=== PATIENT | female | born 1940 ===

== ENCOUNTER 2018-05-22 22:16 | Observation (INO) | payer OTHER, SELFPAY ==
[2018-05-23] VITALS (10 sets, daily range): BP systolic 140–195; BP diastolic 57–75; PULSE 66–88; RESP 15–20; TEMP 36.8–37.4; O2SAT 94–98; BMI 27.8
[2018-05-23] MEDS: SODIUM CHLORIDE 0.9% 1,000 ML 125 ML IV ×2 (01:31→08:50)
--- NOTE | 2018-05-23 04:27 | PC.NURSE ---
Admission Note: Pt direct admit from [facility] per stretcher. Pt AAOx3, able to ambulate from stretcher to bed. Needs walker to ambulate to bathroom, uses cane at home due to vertigo. Has Hx of recent falls at home. Admitted for OBS polynephritis. VSS, complains of right lower abdomen pain took tylenol 3 hrs ago at [facility] doesn't want any more now. Current PIV infiltrated, new PIV started and IV fluids started per orders. Pt stable on admit.
[2018-05-23 05:51] LABS: Add Manual Diff / Slide Review NO; Basophils Percent Auto 0.5 % (0-2); Eosinophils Percent Auto 5.1 % (2-4); Hemoglobin 9.7 g/dL (12.0-16.0); Lymphocytes Percent Auto 13.3 % (25-40); Mean Corpuscular HGB Conc 32.2 % (30-36); Mean Corpuscular Hemoglobin 27.1 PG (26-34); Mean Corpuscular Volume 84.2 fL (80-100); Monocytes Percent Auto 9.5 % (3-14); Neutrophils Absolute Auto 8100 /uL (3000-5900); Neutrophils Percent Auto 71.6 % (50-75); Platelet Count 217 X10^3/uL (150-400); Red Blood Cell Count 3.57 X10^6/uL (4.0-5.2); Red Cell Distribution Width 15.5 % (11.6-14.8); White Blood Cell Count 11.3 X10^3/uL (4.5-11.0)
[2018-05-23 05:52] LABS: BUN Creatinine Ratio 28.1 (6-22); Blood Urea Nitrogen 45 mg/dL (7-17); Calcium 9.1 mg/dL (8.4-10.2); Carbon Dioxide 24 mmol/L (22-32); Chloride 107 mmol/L (98-107); Estimated Glomerular Filt Rate 31.3 mL/min (>60); Glucose 151 mg/dL (80-110); HEMOLYSIS < 15 (0-50); Potassium 4.4 mmol/L (3.4-5.1); Sodium 139 mmol/L (137-145)
[2018-05-23] MEDS: ACETAMINOPHEN 325 MG TABLET 650 MG PO ×2 (05:59→21:35)
[2018-05-23] MEDS: ONDANSETRON 4 MG/2 ML INJ IV (09:23)
--- NOTE | 2018-05-23 09:47 | PC.NURSE ---
Addendum entered by Janiya Martinez R.N. 05/23/18 14:13: med - per sharon in pharmacy, need dose qvar, pt does not know but will have her granddtr look at it and/or bring it over later this afternoon. Original Note: Addendum entered by Janiya Martinez R.N. 05/23/18 13:59: gi/pain - millicent lunch, zofran in am provided effective relief nausea and denies now, discussed pain medications, declines any tylenol at this time, continues visiting with family while seated chair. Original Note: AM NOTE - seated chair, reports some r torso, abd discomfort, mild nausea this am, earlier tylenol provided some relief, declines iv dilaudid, did admin 4mg iv zofran for underlying nausea, bt present, ra 97%, hr 78, cbg check this am 138.
--- NOTE | 2018-05-23 10:51 | CM.DANOTE ---
DCP: Case received, EMR reviewed ad met with patient. Returned back to room and met family as well. DCP template completed with info currently available. Pt is a 78 year old female who admitted yesterday evening to the care of hospitalist team. Came via stretcher from [facility]. PCP: Dr. Chaudhary. Payer: confirmed: [facility] Pt carries diagnosis of Pyelonephritis. Currently lives at home, uses a cane, but has history of vertigo as well. Lives at home with , but have family that is supportive. P: Continue to follow patient as she gets ready for discharge, and offer any support to family that they may need. Danielle Shannon RN/[employer]
--- NOTE | 2018-05-23 11:01 | P.HP_ITS ---
History of Present Illness Date Patient Seen: 05/23/18 Time Patient Seen: 10:00 Chief complaint: PYELONEPHRITIS Narrative: 78-year-old female who presented to the [facility] Emergency room last night for right-sided abdominal pain. She started having right-sided abdominal pain about 4 days ago. The pain is constant. She rates the severity of the pain as 8/10. She also felt feverish. She did not take her temperature at home. She has mild urinary frequency. She has not noticed any burning with urination or urinary urgency. Her white blood cell count was elevated at the outside ER. Abdominal CT scan showed inflammatory changes around the cecum. Her urine analysis showed 10-50 WBCs. She was diagnosed with possible pyelonephritis. She received 2 g of IV ceftriaxone was transferred to [facility]. Patient has been afebrile since hospital admission. She continued to have right-sided abdominal pain. She denies nausea or vomiting. Patient History Medical History Anxiety disorder (Acute) Asthma, mild persistent (Acute) BPV (benign positional vertigo) (Acute ~2011) Bacteriuria (Acute) CHF (congestive heart failure) (Acute) COPD not affecting current episode of care (Acute) Cataract (Acute) Chronic cystitis (Acute) Chronic kidney disease (CKD) (Acute) GERD (gastroesophageal reflux disease) (Acute) Gangrenous cholecystitis (Acute ~09/2016) Gastroparesis (Acute) History of hysterectomy (Acute) Hyperlipidemia (Acute) Hypertension (Acute) Influenza (Acute ~11/2017) Insulin dependent diabetes mellitus with complications (Acute) Lower GI bleed (Acute) Nephropathy (Acute) Neuropathy (Acute) Osteoarthritis (Acute) PUD (peptic ulcer disease) (Acute) RSV (respiratory syncytial virus pneumonia) (Acute ~2015) Recurrent UTI (urinary tract infection) (Acute) Retinopathy (Acute) Stasis dermatitis of both legs (Acute) Stomach ulcer (Acute) TIA (transient ischemic attack) (Acute) Surgical History History of appendectomy (Acute) History of cholecystectomy (Acute ~10/2016) History of esophagogastroduodenoscopy (EGD) (Acute ~2004) History of total vaginal hysterectomy (TVH) (Acute ~1995) Comment: Past medical history: Type 2 diabetes, on Lantus insulin and NovoLog insulin Hypertension Hyperlipidemia Asthma Family & Social History Social History: household members spouse Prior Living Arrangements House Safety & Behavioral: Feels Safe in Current Yes Environment Been Physically Hurt or No Threatened By a Person Suicidal Ideation Description None Tobacco & Substance use: Smoking Status Never smoker alcohol intake never Substance Use Type does not use Comment: Social history: She is and lives with her . She denies alcohol drinking or cigarette smoking. Family history: Noncontributory Meds Home Medications Medication Instructions Recorded Confirmed Type Cholestyramine Light 4 g PO BID 05/23/18 05/23/18 History Kenalog 0.1 % TOPICAL 1-2XD 05/23/18 05/23/18 History Lipitor 10 mg PO DAILY 05/23/18 05/23/18 History Norvasc 5 mg PO DAILY 05/23/18 05/23/18 History Plavix 75 mg PO DAILY 05/23/18 05/23/18 History Proventil HFA 90 mcg INHALATION PRN PRN 05/23/18 05/23/18 History Qvar RediHaler 1 puff INHALATION BID PRN 05/23/18 05/23/18 History Singulair 10 mg PO QPM 05/23/18 05/23/18 History Tylenol 325 mg PO PRN PRN 05/23/18 05/23/18 History Vitamin D3 1,000 thousand unit PO DAILY 05/23/18 05/23/18 History Zantac 150 mg PO BID 05/23/18 05/23/18 History Zofran ODT 4 mg PO PRN PRN 05/23/18 05/23/18 History colchicine 0.6 mg PO DAILY 05/23/18 05/23/18 History ferrous sulfate 324 mg PO DAILY 05/23/18 05/23/18 History furosemide See Label Instructions .ROUTE 05/23/18 05/23/18 History .COMPLEX gabapentin 100 mg PO 05/23/18 History hydrocodone-acetaminophen 1 tab PO Q6HR PRN 05/23/18 05/23/18 History insulin aspart U-100 See Label Instructions .ROUTE 05/23/18 05/23/18 History .COMPLEX insulin glargine See Label Instructions .ROUTE 05/23/18 05/23/18 History .COMPLEX meclizine 25 mg PO TID 05/23/18 05/23/18 History sodium polystyrene sulfonate 15 g PO 3XW 05/23/18 05/23/18 History Allergies Allergy/AdvReac Type Severity Reaction Status Date / Time pioglitazone AdvReac Mild Gastrointestinal Verified 05/23/18 03:19 Upset rosiglitazone AdvReac Mild Gastrointestinal Verified 05/23/18 03:19 Upset Review of Systems Constitutional Constitutional: Reports fever(s) Cardiovascular Cardiovascular: Reports shortness of breath with activity Comments: Denies chest pain Respiratory Respiratory: Reports dyspnea on exertion Gastrointestinal Gastrointestinal: Reports as per HPI Genitourinary Genitourinary: Reports as per HPI Exam Vital Signs (past 8 hours): - 05/23/18 04:21 05/23/18 04:41 05/23/18 08:33 Temperature 98.9 F 98.7 F Pulse Rate 78 75 Respiratory Rate 16 17 Blood Pressure 140/57 H 155/59 H Pulse Oximetry 98 98 Oxygen Delivery Method Room Air Narrative Exam Narrative: GENERAL: Well-appearing, well-nourished and in no acute distress. HEENT: Head normocephalic, atraumatic. Eyes pupils equal round NECK: Supple, no JVD, CHEST: Breath sounds equal bilaterally, no wheezes rales or rhonchi. CARDIAC: Regular rate and rhythm without murmurs, rubs or gallops. ABDOMEN: Soft, mild right-sided tenderness. No guarding or rebound. EXTREMITIES: Normal range of motion, no clubbing or edema. NEUROLOGICAL: Alert and oriented; Normal muscle strength. SKIN: Warm, dry, no petechiae, no rashes or lesions. Objective Imaging CT scan - abdomen: Radiologist's impression: Abdominal and pelvic CT with contrast on May at [facility]: Pancreas was normal. Liver and spleen were normal. Kidneys are normal in size without hydronephrosis or nephrolithiasis. No free air or free fluid. There is residual inflammatory fat stranding surrounding the cecum which is much improved compared to January 23, 2018. There are extensive atheromatous plaque in the region of the origin of celiac and superior mesenteric arteries. There was gas within the lumen of the bladder Labs Result Diagrams: 05/23/18 05:20 05/23/18 05:20 Labs: Laboratory Results - last 24 hr 05/23/18 05/23/18 05:20 05:20 WBC 11.3 H RBC 3.57 L Hgb 9.7 L Hct 30.0 L MCV 84.2 MCH 27.1 MCHC 32.2 RDW 15.5 H Plt Count 217 Neut % (Auto) 71.6 Lymph % (Auto) 13.3 L [place] % (Auto) 9.5 Eos % (Auto) 5.1 H Baso % (Auto) 0.5 Neut # (Auto) 8100 H Sodium 139 Potassium 4.4 Chloride 107 Carbon Dioxide 24 BUN 45 H Creatinine 1.60 H Estimated GFR 31.3 L BUN/Creatinine Ratio 28.1 H Glucose 151 H Calcium 9.1 Assessment & Plan Plan: Assessment/Plan Narrative: 1. Urinary tract infection with possible pyelonephritis: She received 2 g of IV ceftriaxone at the outside ER yesterday. Preliminary urine culture from [facility] grew greater than 100,000 colonies of E coli. Id and sensitivity are still pending. We will start IV Levaquin 500 mg Q 24 hr. 2. Inflammatory changes near the cecum: The location of the inflammatory changes does correlate with her right-sided abdominal pain. However based on the radiology reading, her and inflammatory changes might have occurred for several months. The etiology is not quite clear. There seem to have improvement by comparing the 2 CT scans. We will empirically start her on Levaquin and Flagyl for treating possible enteritis. 3. Type 2 diabetes: Continue Lantus insulin and NovoLog insulin per outpatient dosing. 4. Hypertension: Continue amlodipine and lisinopril per outpatient dosing. 5. Disposition: Discharge home when she is medically more stable.
[2018-05-23] MEDS: levoFLOXacin 500 MG/100 ML PIGGYBACK 100 MG IV (11:31)
[2018-05-23] MEDS: INSULIN GLARGINE 100 UNIT/ML 3ML PEN 20 UNIT SUBCUT ×2 (11:31→21:32)
[2018-05-23] MEDS: metroNIDAZOLE 500 MG/100 ML PIGGYBACK 100 MG IV ×2 (12:38→21:31)
[2018-05-23] MEDS: INSULIN ASPART 100 UNIT/ML INSULN PEN 10 UNIT SUBCUT ×2 (12:41→21:33)
[2018-05-23] MEDS: MONTELUKAST 10 MG TABLET PO (18:21)
[2018-05-23] MEDS: CHOLESTYRAMINE/ASPARTAME 4 GM PACK PO (21:31)
[2018-05-24 04:03] VITALS: BP 171/66; PULSE 76; RESP 15; TEMP 36.7; O2SAT 95
[2018-05-24] MEDS: metroNIDAZOLE 500 MG/100 ML PIGGYBACK 100 MG IV ×2 (05:02→11:39)
[2018-05-24] MEDS: SODIUM CHLORIDE 0.9% 1,000 ML 125 ML IV (05:04)
--- NOTE | 2018-05-24 05:47 | PC.NURSE ---
pt's cbg at 0300= 57 snack of 1/2 egg sandwich, 120ml milk, chocolate s.f. pudding given w/100% eaten. cbg recheck at 0350 = 113. symptoms of sweating to back of neck, shakiness, weakness resolved after snack. pt reported not eating much at dinner.
[2018-05-24 07:00] VITALS: O2SAT 98
[2018-05-24 08:00] VITALS: BP 183/77; BP 192/72; PULSE 81; RESP 16; TEMP 36.9; O2SAT 98
[2018-05-24] MEDS: INSULIN GLARGINE 100 UNIT/ML 3ML PEN 20 UNIT SUBCUT (09:54)
[2018-05-24] MEDS: CHOLECALCIFEROL (VITAMIN D3) 1,000 UNIT TABLET 1000 UNIT PO (09:55)
[2018-05-24] MEDS: ATORVASTATIN 10 MG TABLET PO (09:55)
[2018-05-24] MEDS: CLOPIDOGREL 75 MG TABLET PO (09:55)
[2018-05-24] MEDS: AMLODIPINE 5 MG TABLET PO (09:55)
[2018-05-24] MEDS: INSULIN ASPART 100 UNIT/ML INSULN PEN 10 UNIT SUBCUT (09:55)
[2018-05-24] MEDS: FERROUS SULFATE 325 MG TABLET PO (09:55)
--- NOTE | 2018-05-24 10:45 | RT ---
Spoke with Pt. about the importance of using her Qvar on a daily basis vs. PRN. The pt. understands but would continue to use it only when she feels short of breath. I did educate the pt. but it seems as though it may be a cost issue. Will continue to work with the pt.
[2018-05-24] MEDS: CHOLESTYRAMINE/ASPARTAME 4 GM PACK PO (11:38)
--- NOTE | 2018-05-24 11:46 | P.DS_ITS ---
History of Present Illness Date Patient Seen: 05/24/18 Time Patient Seen: 11:30 Chief complaint: PYELONEPHRITIS Narrative: 78-year-old female who presented to the [facility] Emergency room last night for right-sided abdominal pain. She started having right-sided abdominal pain about 4 days ago. The pain is constant. She rates the severity of the pain as 8/10. She also felt feverish. She did not take her temperature at home. She has mild urinary frequency. She has not noticed any burning with urination or urinary urgency. Her white blood cell count was elevated at the outside ER. Abdominal CT scan showed inflammatory changes around the cecum. Her urine analysis showed 10-50 WBCs. She was diagnosed with possible pyelonephritis. She received 2 g of IV ceftriaxone was transferred to [facility]. Patient has been afebrile since hospital admission. She continued to have right-sided abdominal pain. She denies nausea or vomiting. Discharge Providers Date of admission: 05/22/18 22:16 Primary care physician: Jami Chaudhary MD Discharge provider: Levi Nelson MD Summary Discharge Diagnosis: 1. Acute pyelonephritis due to E coli 2. Inflammatory changes near the cecum, with outpatient workup planned including colonoscopy 3. Diabetes mellitus, type 2 4. Hypertension Hospital Course: The patient was admitted and treated with IV ceftriaxone, levofloxacin and metronidazole. Her culture returned showing sensitivity to cefuroxime and she was switched to this at discharge, to continue for a 10 day course with outpatient follow-up. She has no gastrointestinal symptoms to suggest cecal or other gastrointestinal involvement, and has been noted to have chronic changes in this area on prior CT, with follow-up planned through Gastroenterology. Therefore, no further therapy is indicated at this point, and she will be treated for pyelonephritis only. No other issues arose. She is prescribed hydrocodone #20 tablets for pain control until follow-up with her primary care provider. Status at Discharge Functional status at discharge: independent ambulation Overall status at discharge: patient is progressing back to baseline Time Spent with Patient Greater than 30 minutes Exam Vital Signs (past 8 hours): - 05/24/18 04:03 05/24/18 07:00 05/24/18 08:00 Temperature 98.1 F 98.4 F Pulse Rate 76 81 Respiratory Rate 15 16 Blood Pressure 171/66 H 183/77 H Pulse Oximetry 95 98 98 Oxygen Delivery Method Room Air Oxygen Flow Rate 0 Objective Labs Result Diagrams: 05/23/18 05:20 05/23/18 05:20 Discharge Plan Discharge Plan Patient Disposition: Home, Self-Care Discharge Med Rec/Prescriptions Prescriptions: New cefuroxime axetil 500 mg tablet 500 mg PO Q12H 10 Days Qty: 20 RF: 0 Continue acetaminophen [Tylenol] 325 mg Tablet 325 mg PO PRN PRN (Reason: Pain, Mild) RF: 0 albuterol sulfate [Proventil HFA] 90 mcg/actuation Hfa Aerosol Inhaler 90 mcg Inhalation PRN PRN (Reason: Shortness Of Breath) RF: 0 amlodipine [Norvasc] 5 mg Tablet 5 mg PO DAILY RF: 0 atorvastatin [Lipitor] 10 mg Tablet 10 mg PO DAILY RF: 0 Qvar RediHaler inhaler 1 puff Inhalation BID PRN (Reason: Shortness Of Breath) RF: 0 clopidogrel [Plavix] 75 mg Tablet 75 mg PO DAILY RF: 0 cholecalciferol (vitamin D3) [Vitamin D3] 1,000 unit Capsule 1,000 unit PO DAILY RF: 0 cholestyramine-aspartame [Cholestyramine Light] 4 gram Powder 4 g PO BID RF: 0 colchicine 0.6 mg Tablet 0.6 mg PO DAILY RF: 0 ferrous sulfate 324 mg (65 mg iron) Tablet,Delayed Release (Dr/Ec) 324 mg PO DAILY RF: 0 furosemide 40 mg Tablet See Label Instructions .ROUTE .COMPLEX RF: 0 gabapentin 100 mg Capsule 1 dose PO DIRECTED RF: 0 insulin aspart U-100 100 unit/mL Insulin Pen See Label Instructions .ROUTE .COMPLEX RF: 0 insulin glargine 100 unit/mL (3 mL) Insulin Pen See Label Instructions .ROUTE .COMPLEX RF: 0 meclizine 25 mg Tablet 25 mg PO TID RF: 0 montelukast [Singulair] 10 mg Tablet 10 mg PO QPM RF: 0 Zofran ODT 4 mg PO PRN PRN (Reason: Nausea) RF: 0 Zantac 150 mg PO BID RF: 0 sodium polystyrene sulfonate 15 gram Powder In Packet 15 g PO 3XW RF: 0 triamcinolone acetonide 0.1 % Cream 1 applic TOPICAL BID RF: 0 hydrocodone-acetaminophen 5-325 mg Tablet 1 tab PO Q6HR PRN (Reason: Pain, Moderate) Qty: 20 RF: 0 Follow up/Referrals: Jami Chaudhary MD [Primary Care Provider] - 1 Week Provider Discharge Instructions Diet: Regular Wound Care Report to your healthcare provider any signs of infection, such as:: chills, fever, night sweats, increased pain and unusual drainage Discharge Data Primary Care Provider: Jami Chaudhary Attending Provider: Levi Nelson V Admit Date/Time: 05/22/18 22:16
[2018-05-24 12:00] VITALS: BP 162/66; PULSE 93; RESP 16; TEMP 36.9; O2SAT 96
--- NOTE | 2018-05-24 13:36 | PC.NURSE ---
discharge d/c instructions provided to pt and . notified to make f/u apt with PCP in 1 week. also aware to call if any questions or concerns. Pt states she took all belongings with her. left in w/c with RN escort. PIV removed prior to d/c.
--- NOTE | 2018-05-24 13:40 | CM.DPC ---
DCP: continued: case received, EMR reviewed and d/c home noted. Pt has already left building with her . Will have outpt followup as per Dr. Nelson's d/c summary instructions.
== END 2018-05-24 13:15 | disposition home or self-care (01) | DRG 690 ==
PROVIDERS: Admitting Provider Internal Medicine; Family Provider Family Medicine; PCP Family Medicine; Visit Provider Internal Medicine
DX: N10 Acute pyelonephritis (principal); B96.20 Unspecified Escherichia coli [E. coli] as the cause of diseases classified elsewhere; K52.9 Noninfective gastroenteritis and colitis, unspecified; E11.40 Type 2 diabetes mellitus with diabetic neuropathy, unspecified; Z79.4 Long term (current) use of insulin; I10 Essential (primary) hypertension; F41.9 Anxiety disorder, unspecified; K21.9 Gastro-esophageal reflux disease without esophagitis
CPT/HCPCS: 36415; 80048; 82962; 85025; G0378; G0379; J1956; J2405